=== PATIENT | female | born 2000 | race Caucasian/White ===

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

== ENCOUNTER 2018-03-30 01:10 | Emergency (ER) | payer MEDICAID ==
--- NOTE | 2018-03-30 01:39 | ER Document Report ---
ED Medical Screen (RME) - General Chief Complaint: Urinary Problem Stated Complaint: URINARY PROBLEM Time Seen by Provider: 03/30/18 01:38 Mode of Arrival: Ambulatory Information source: Patient Notes: 17-year-old female presents to ED for complaint of urinary discomfort. She states tonight when she went to the bathroom she had a lot of burning with urination and when she wiped it was pink tinged on the paper. She states she finished she urinates she feels like she needs to go again. Patient is alert and oriented respirations regular and unlabored speaking in full sentences walk with a even steady gait. I have greeted and performed a rapid initial assessment of this patient. A comprehensive ED assessment and evaluation of the patient, analysis of test results and completion of medical decision making process will be conducted by an additional ED providers. TRAVEL OUTSIDE OF THE [place] IN LAST 30 DAYS: No - Related Data Allergies/Adverse Reactions: No Known Allergies Allergy (Verified 06/09/17 08:48) Past Medical History - Past Medical History Cardiac Medical History: Denies: Hx Coronary Artery Disease, Hx Heart Attack, Hx Hypertension Pulmonary Medical History: Denies: Hx Asthma, Hx Bronchitis, Hx COPD, Hx Pneumonia Neurological Medical History: Denies: Hx Cerebrovascular Accident, Hx Seizures Renal/ Medical History: Denies: Hx Peritoneal Dialysis Musculoskeltal Medical History: Denies Hx Arthritis Past Surgical History: Reports: Other - pilon. cyst - Immunizations Hx Diphtheria, Pertussis, Tetanus Vaccination: Yes History of Influenza Vaccine for 05/2017 - 10/2017 Season: No Doctor's Discharge - Discharge Referrals: ERICA BECERRA MD [Primary Care Provider] - Follow up as needed
[2018-03-30 02:59] LABS: APPEARANCE,URINE CLOUDY; BILIRUBIN,URINE NEGATIVE (NEGATIVE); CALCIUM OXALATE CRYSTALS,URINE FEW /HPF; COLOR,URINE YELLOW; GLUCOSE, URINE 50 mg/dL (NEGATIVE); KETONES,URINE NEGATIVE (NEGATIVE); LEUKOCYTE ESTERASE,URINE LARGE (NEGATIVE); NITRITE,URINE NEGATIVE (NEGATIVE); PROTEIN,URINE 30 mg/dL (NEGATIVE); URINE SPECIFIC GRAVITY 1.029; UROBILINOGEN,URINE NEGATIVE mg/dL (<2.0)
== END 2018-03-30 03:30 | disposition left against medical advice (07) ==
LOC: ER 01:10
DX: R30.0 Dysuria (principal); Z53.20 Procedure and treatment not carried out because of patient's decision for unspecified reasons
CPT/HCPCS: 81001; 81025; 99281

== ENCOUNTER 2018-07-10 17:53 | Emergency (ER) | payer MEDICAID ==
[2018-07-10] MEDS ORDERED: LIDOCAINE 2% VISCOUS SOLN 20 ML UDCUP PO ONE (18:10)
[2018-07-10] MEDS ORDERED: DEXAMETHASONE 4 MG TABLET PO ONE (18:10)
[2018-07-10] MEDS ORDERED: IBUPROFEN 800 MG TABLET PO ONE (18:10)
--- NOTE | 2018-07-10 18:23 | ER Document Report ---
HPI - HPI Patient complains to provider of: Sore throat Time Seen by Provider: 07/10/18 18:00 Onset/Duration: Persistent Quality of pain: Achy Pain Level: 5 Context: Patient presents complaining of sore throat for the past 3 days. Patient reports fever at home of 100.2. Patient is concerned she has strep. Associated Symptoms: Fever, Sore throat. denies: Headache Exacerbated by: Denies Relieved by: Denies Similar symptoms previously: Yes Recently seen / treated by doctor: No - ROS ROS below otherwise negative: Yes Systems Reviewed and Negative: Yes All other systems reviewed and negative - CONSTITUTIONAL Constitutional: REPORTS: Fever - EENT EENT: REPORTS: Sore Throat. DENIES: Ear Pain, Congestion - RESPIRATORY Respiratory: DENIES: Coughing - GASTROINTESTINAL Gastrointestinal: DENIES: Nausea, Patient vomiting - REPRODUCTIVE Reproductive: DENIES: : - MUSCULOSKELETAL Musculoskeletal: DENIES: Neck Pain - DERM Skin Color: Normal Skin Problems: None Past Medical History - General Information source: Patient - Social History Smoking Status: Never Smoker Frequency of alcohol use: None Drug Abuse: None Occupation: None Family History: Reviewed & Not Pertinent - Medical History Medical History: Negative - Past Medical History Cardiac Medical History: Denies: Hx Coronary Artery Disease, Hx Heart Attack, Hx Hypertension Pulmonary Medical History: Denies: Hx Asthma, Hx Bronchitis, Hx COPD, Hx Pneumonia Neurological Medical History: Denies: Hx Cerebrovascular Accident, Hx Seizures Renal/ Medical History: Denies: Hx Peritoneal Dialysis Musculoskeletal Medical History: Denies Hx Arthritis Past Surgical History: Reports: Other - pilon. cyst - Immunizations Hx Diphtheria, Pertussis, Tetanus Vaccination: Yes Vertical Provider Document - CONSTITUTIONAL Agree With Documented VS: Yes Exam Limitations: No Limitations General Appearance: WD/WN, No Apparent Distress - INFECTION CONTROL TRAVEL OUTSIDE OF THE [place] IN LAST 30 DAYS: No - HEENT HEENT: Atraumatic, Normocephalic, Pharyngeal Exudate, Pharyngeal Tenderness, Pharyngeal Erythema - NECK Neck: Lymphadenopathy-Left, Lymphadenopathy-Right - RESPIRATORY Respiratory: Breath Sounds Normal, No Respiratory Distress - CARDIOVASCULAR Cardiovascular: Regular Rate, Regular Rhythm, No Murmur - MUSCULOSKELETAL/EXTREMETIES Musculoskeletal/Extremeties: MAEW - NEURO Level of Consciousness: Awake, Alert, Appropriate Motor/Sensory: No Motor Deficit - DERM Integumentary: Warm, Dry, No Rash Course - Re-evaluation Re-evalutation: 07/10/18 \ No potential airway compromise, no concern for peritonsillar abscess. Patient able to manage oral secretions. Throat culture is pending at this time. Good return precautions given. - Laboratory Laboratory results interpreted by me: 07/10/18 18:51 Labs- Entire Visit 07/10/18 18:00 Group A Strep Rapid NEGATIVE Discharge - Discharge Clinical Impression: Sore throat (viral) Condition: Stable Disposition: HOME, SELF-CARE Instructions: Acetaminophen, Sore Throat ([facility]) Additional Instructions: Return immediately for any new or worsening symptoms Followup with your primary care provider, call tomorrow to make a followup appointment Throat culture is pending, we will call if you need any different treatment Prescriptions: Naproxen [Naprosyn 250 Nmg Tablet] 1 tab PO BID #14 tablet Referrals: [facility] [Provider Group] - Follow up as needed [facility] [Provider Group] - Follow up as needed
[2018-07-10 20:05] VITALS: BP 151/83
== END 2018-07-10 19:24 | disposition home or self-care (01) ==
LOC: ER 17:53
DX: J02.8 Acute pharyngitis due to other specified organisms (principal); B97.89 Other viral agents as the cause of diseases classified elsewhere; R50.9 Fever, unspecified; R59.0 Localized enlarged lymph nodes
CPT/HCPCS: 99283; 87070; 87880; J3490 ×3

== ENCOUNTER 2018-10-27 09:22 | Emergency (ER) | payer MEDICAID ==
--- NOTE | 2018-10-27 09:40 | ER Document Report ---
HPI - HPI Time Seen by Provider: 10/27/18 09:35 Pain Level: 2 Notes: Patient is an otherwise healthy 18-year-old female who presents to the emergency department with multiple complaints today. She complains of dysuria and urinary frequency that began last night. She also reports sinus congestion and ear pressure. She does state that she had a tonsillectomy done 3 weeks ago by [facility]. She denies any fevers, nausea, vomiting or diarrhea. - REPRODUCTIVE Reproductive: DENIES: : Past Medical History - General Information source: Patient - Social History Smoking Status: Never Smoker Frequency of alcohol use: None Drug Abuse: None Family History: Reviewed & Not Pertinent - Medical History Medical History: Negative - Past Medical History Cardiac Medical History: Denies: Hx Coronary Artery Disease, Hx Heart Attack, Hx Hypertension Pulmonary Medical History: Denies: Hx Asthma, Hx Bronchitis, Hx COPD, Hx Pneumonia Neurological Medical History: Denies: Hx Cerebrovascular Accident, Hx Seizures Renal/ Medical History: Denies: Hx Peritoneal Dialysis Musculoskeletal Medical History: Denies Hx Arthritis Past Surgical History: Reports: Hx Tonsillectomy, Other - pilon. cyst - Immunizations Hx Diphtheria, Pertussis, Tetanus Vaccination: Yes Vertical Provider Document - CONSTITUTIONAL Notes: PHYSICAL EXAMINATION: GENERAL: Well-appearing, well-nourished and in no acute distress. HEAD: Atraumatic, normocephalic. EYES: Pupils equal round extraocular movements intact, conjunctiva are normal. ENT: Nares patent with clear rhinorrhea. Bilateral TMs full, no erythema. NECK: Normal range of motion, no cervical lymphadenopathy. LUNGS: No respiratory distress, lung sounds clear to auscultation bilaterally Musculoskeletal: Normal range of motion NEUROLOGICAL: Normal speech, normal gait. PSYCH: Normal mood, normal affect. SKIN: Warm, Dry, normal turgor, no rashes or lesions noted. - INFECTION CONTROL TRAVEL OUTSIDE OF THE [place] IN LAST 30 DAYS: No Course - Re-evaluation Re-evalutation: Urinalysis with trace leukocyte esterase, considering patient is symptomatic we will start patient on antibiotics and send urine for culture. Patient encouraged to purchase [id number] Sudafed for her congestion and take the Flonase as prescribed. - Vital Signs Vital signs: Temp Pulse Resp BP Pulse Ox 98.2 F 80 20 140/69 H 98 10/27/18 09:27 10/27/18 09:27 10/27/18 09:27 10/27/18 09:27 10/27/18 09:27 Discharge - Discharge Clinical Impression: Nasal congestion, Dysuria Condition: Stable Disposition: HOME, SELF-CARE Additional Instructions: Your urine appears to be mildly infected. I will put you on a short course of antibiotics pending a urine culture. If there is any abnormality on the urine culture someone will call you in the next 48-72 hours. In the meanwhile my recommendation is to use the Flonase nasal spray as discussed. Patient also purchase [id number] Sudafed to help with your nasal congestion. Prescriptions: Cephalexin [Cephalexin 500 MG Tablet] 1 tab PO QID #20 tablet Fluticasone Propionate [Flonase Nasal Bisbee 50 Mcg/Bisbee 16 gm] 2 sprays NASL Q12 #1 inhaler
[2018-10-27 10:05] LABS: APPEARANCE,URINE SLIGHTLY-CLOUDY; BILIRUBIN,URINE NEGATIVE (NEGATIVE); COLOR,URINE YELLOW; GLUCOSE, URINE NEGATIVE (NEGATIVE); KETONES,URINE NEGATIVE (NEGATIVE); LEUKOCYTE ESTERASE,URINE TRACE (NEGATIVE); NITRITE,URINE NEGATIVE (NEGATIVE); PROTEIN,URINE NEGATIVE (NEGATIVE); URINE SPECIFIC GRAVITY 1.025; UROBILINOGEN,URINE NEGATIVE mg/dL (<2.0)
[2018-10-27 10:37] VITALS: BP 131/68
== END 2018-10-27 10:40 | disposition home or self-care (01) ==
LOC: ER 09:22
DX: R30.0 Dysuria (principal); R35.0 Frequency of micturition; R09.81 Nasal congestion; Z90.89 Acquired absence of other organs
CPT/HCPCS: 81001; 87086; 87088; 87186; 99283

== ENCOUNTER 2018-12-22 00:19 | Emergency (ER) | payer MEDICAID ==
--- NOTE | 2018-12-22 03:34 | ER Document Report ---
ED ENT - General Chief Complaint: Sinus Congestion Stated Complaint: ALLERGY ISSUES Time Seen by Provider: 12/22/18 03:05 TRAVEL OUTSIDE OF THE [place] IN LAST 30 DAYS: No - HPI Notes: Patient is a 18-year-old female presents to the emergency department with a chief complaint of congestion and runny nose. Patient states that the symptoms started about 3 to 4 days ago. Patient has attempted multiple [id number] medications such as a cold and flu, allergy all day, Vicks VapoRub without relief. Patient does deny fever. Patient states that she did take some of her aunts Zyrtec over the weekend which seemed to be the only thing that helped. Patient did have an episode of vomiting yesterday while at work, which she took her own personal Zofran. Patient states that she has been able to tolerate fluids and food since then. Patient does report 2 episodes of diarrhea per day for the past 3 to 4 days. Patient reports that she has had itching and clear drainage from both eyes. Patient also reports feeling of fullness in both ears. Patient denies sore throat, denies shortness of breath - Related Data Allergies/Adverse Reactions: No Known Allergies Allergy (Verified 10/27/18 09:33) Past Medical History - General Information source: Patient - Social History Smoking Status: Current Every Day Smoker Chew tobacco use (# tins/day): No Frequency of alcohol use: None Drug Abuse: None Family History: Reviewed & Not Pertinent Patient has suicidal ideation: No Patient has homicidal ideation: No - Past Medical History Cardiac Medical History: Denies: Hx Coronary Artery Disease, Hx Heart Attack, Hx Hypertension Pulmonary Medical History: Denies: Hx Asthma, Hx Bronchitis, Hx COPD, Hx Pneumonia Neurological Medical History: Denies: Hx Cerebrovascular Accident, Hx Seizures Renal/ Medical History: Denies: Hx Peritoneal Dialysis Musculoskeletal Medical History: Denies Hx Arthritis Past Surgical History: Reports: Hx Tonsillectomy, Other - pilon. cyst - Immunizations Hx Diphtheria, Pertussis, Tetanus Vaccination: Yes Review of Systems - Review of Systems Constitutional: See HPI EENT: See HPI Cardiovascular: No symptoms reported Respiratory: No symptoms reported Gastrointestinal: See HPI Genitourinary: No symptoms reported Female Genitourinary: No symptoms reported Musculoskeletal: No symptoms reported Skin: No symptoms reported Hematologic/Lymphatic: No symptoms reported Neurological/Psychological: No symptoms reported Physical Exam - Vital signs Vitals: Temp Pulse Resp BP Pulse Ox 97.9 F 105 H 16 147/94 H 100 12/22/18 00:22 12/22/18 00:22 12/22/18 00:22 12/22/18 00:22 12/22/18 00:22 Interpretation: Hypertensive, Tachycardic - Notes Notes: GENERAL: Well-appearing, well-nourished and in no acute distress. HEAD: Atraumatic, normocephalic. EYES: Pupils equal round and reactive to light, extraocular movements intact, sclera anicteric, conjunctiva are normal. ENT: Left TM normal, right TM cloudy but no redness, drainage or perforation, nares patent, oropharynx clear without exudates. Moist mucous membranes. Mild sinus tenderness with palpation. NECK: Normal range of motion, supple without lymphadenopathy or JVD. LUNGS: Breath sounds clear to auscultation bilaterally and equal. No wheezes rales or rhonchi. HEART: Regular rate and rhythm without murmurs, rubs or gallops. ABDOMEN: Soft, nontender, normoactive bowel sounds. No guarding, no rebound. No masses appreciated. EXTREMITIES: Normal range of motion, no pitting or edema. No clubbing or cyanosis. NEUROLOGICAL: Cranial nerves II through XII grossly intact. Normal speech, normal gait. PSYCH: Normal mood, normal affect. SKIN: Warm, Dry, normal turgor, no rashes or lesions noted. Course - Re-evaluation Re-evalutation: Patient symptoms consistent with viral conjunctivitis and allergies. Will place patient on Shelbie, a decongestant and nasal spray. Patient reports that she has been inconsistent with allergy medications in the past. Educated patient on the importance of using these medications daily to help with her symptoms. Informed patient to return if symptoms worsen and she develops fever, shortness of breath, severe facial pain, or any other concerning signs or symptoms. - Vital Signs Vital signs: Temp Pulse Resp BP Pulse Ox 98.1 F 98 18 139/89 H 99 12/22/18 03:45 12/22/18 03:45 12/22/18 03:45 12/22/18 03:45 12/22/18 03:45 Discharge - Discharge Clinical Impression: Acute effusion of right ear, Congestion of nasal sinus, Acute viral conjunctivitis of both eyes Condition: Stable Disposition: HOME, SELF-CARE Instructions: Viral Syndrome ([facility]) Additional Instructions: Today your evaluated in the emergency department for congestion, runny nose and symptoms are consistent with allergies. You are being prescribed Flonase nasal spray and Shelbie. With these allergy medications it is important to use these consistently. You can use OTC sudafed which is a nasal decongestant. Continue to push fluids to prevent dehydration. Return to the emergency department for worsening of symptoms to include fever, shortness of breath, chest pain, any other concerning signs or symptoms. Prescriptions: Fexofenadine/Pseudoephedrine [Shelbie-D 24 Hour Tablet] 1 each PO DAILY 30 Days #30 tab.er.24h Fluticasone Propionate [Flonase Nasal [place] 50 Mcg/Orwell 16 gm] 2 sprays NASL Q12 #1 inhaler Forms: Return to Work
[2018-12-22 03:54] VITALS: BP 139/89
== END 2018-12-22 03:54 | disposition home or self-care (01) ==
LOC: ER 00:19
DX: H10.33 Unspecified acute conjunctivitis, bilateral (principal); H92.02 Otalgia, left ear; R09.81 Nasal congestion; R09.89 Other specified symptoms and signs involving the circulatory and respiratory systems; F17.200 Nicotine dependence, unspecified, uncomplicated
CPT/HCPCS: 99283

== ENCOUNTER 2019-02-13 18:19 | Emergency (ER) | payer MEDICAID ==
[2019-02-13] MEDS ORDERED: ONDANSETRON HCL INJ/PF 4 MG/2 ML SDV IV ONE (19:05)
--- NOTE | 2019-02-13 19:15 | ER Document Report ---
ED Medical Screen (RME) - General Chief Complaint: Nausea/Vomiting Stated Complaint: NAUSEA Time Seen by Provider: 02/13/19 19:04 Notes: Patient is a 18-year-old female presents to the emergency department for generalized nausea and vomiting. Patient states her and her friend ate out last evening. States her friend has similar symptoms. Patient states generalized cramping right and left upper quadrants. Patient is denying any fevers or dysuria. GENERAL: Alert, interacts well. No acute distress. ABDOMEN: Soft, generalized epigastric and left upper quadrant pain noted non- distended. Bowel sounds present in all 4 quadrants. I have greeted and performed a rapid initial assessment of this patient. A comprehensive ED assessment and evaluation of the patient, analysis of test results and completion of the medical decision making process will be conducted by additional ED providers. I have specifically instructed the patient or family members with the patient to immediately return to any nursing staff should anything change in the patient's condition or with their chief complaint. This medical record was dictated with voice recognizing software. There may be grammatical, syntax errors that are unintended. TRAVEL OUTSIDE OF THE [place] IN LAST 30 DAYS: No - Related Data Allergies/Adverse Reactions: No Known Allergies Allergy (Verified 02/13/19 18:21) Past Medical History - Social History Frequency of alcohol use: None Drug Abuse: None - Past Medical History Cardiac Medical History: Denies: Hx Coronary Artery Disease, Hx Heart Attack, Hx Hypertension Pulmonary Medical History: Denies: Hx Asthma, Hx Bronchitis, Hx COPD, Hx Pneumonia Neurological Medical History: Denies: Hx Cerebrovascular Accident, Hx Seizures Renal/ Medical History: Denies: Hx Peritoneal Dialysis Musculoskeltal Medical History: Denies Hx Arthritis Past Surgical History: Reports: Hx Tonsillectomy, Other - pilon. cyst - Immunizations Hx Diphtheria, Pertussis, Tetanus Vaccination: Yes History of Influenza Vaccine for 05/2017 - 10/2017 Season: No Physical Exam - Vital signs Vitals: Temp Pulse Resp BP Pulse Ox 98.6 F 69 20 153/104 H 97 02/13/19 18:23 02/13/19 18:23 02/13/19 18:23 02/13/19 18:23 02/13/19 18:23 Course - Vital Signs Vital signs: Temp Pulse Resp BP Pulse Ox 98.6 F 69 20 153/104 H 97 02/13/19 18:23 02/13/19 18:23 02/13/19 18:23 02/13/19 18:23 02/13/19 18:23
[2019-02-13 19:38] LABS: ABSOLUTE BASOPHILS # (AUTO) 0.1 10^3/uL (0.0-0.2); ABSOLUTE EOSINOPHILS # (AUTO) 0.4 10^3/uL (0.0-0.6); ABSOLUTE MONOCYTES (AUTO) 0.7 10^3/uL (0.1-1.4); ABSOLUTE NEUT (AUTO) 5.9 10^3/uL (1.7-8.2); EOSINOPHILS % (AUTO) 3.5 % (0-6); HEMATOCRIT 43.6 % (36.0-47.0); HEMOGLOBIN 14.7 g/dL (12.0-15.5); LYMPHOCYTES % (AUTO) 35.8 % (13-45); MEAN CORPUSCULAR HEMOGLOBIN 27.3 pg (27.0-33.4); MEAN CORPUSCULAR HGB CONC 33.6 g/dL (32.0-36.0); MEAN CORPUSCULAR VOLUME 81 fl (80-97); MONOCYTES % (AUTO) 6.6 % (3-13); PLATELET COUNT 385 10^3/uL (150-450); RED BLOOD COUNT 5.38 10^6/uL (3.72-5.28); RED CELL DISTRIBUTION WIDTH 14.4 % (11.5-14.0); SEGMENTED NEUTROPHILS % (AUTO) 53.1 % (42-78); TOTAL CELLS COUNTED % (AUTO) 100 %
[2019-02-13 19:46] LABS: APPEARANCE,URINE SLIGHTLY-CLOUDY; BILIRUBIN,URINE NEGATIVE (NEGATIVE); COLOR,URINE YELLOW; GLUCOSE, URINE NEGATIVE (NEGATIVE); KETONES,URINE NEGATIVE (NEGATIVE); LEUKOCYTE ESTERASE,URINE TRACE (NEGATIVE); NITRITE,URINE NEGATIVE (NEGATIVE); PROTEIN,URINE NEGATIVE (NEGATIVE); URINE SPECIFIC GRAVITY 1.023; UROBILINOGEN,URINE NEGATIVE mg/dL (<2.0)
[2019-02-13 19:57] LABS: ALANINE AMINOTRANSFERASE 28 U/L (9-52); ALBUMIN 4.5 g/dL (3.5-5.0); ALKALINE PHOSPHATASE 84 U/L (38-126); ANION GAP 10 (5-19); ASPARTATE AMINO TRANSFERASE 35 U/L (14-36); BILIRUBIN,DIRECT 0.3 mg/dL (0.0-0.4); BILIRUBIN,TOTAL 0.4 mg/dL (0.2-1.3); BLOOD UREA NITROGEN 14 mg/dL (7-20); CALCIUM 10.2 mg/dL (8.4-10.2); CARBON DIOXIDE 24 mmol/L (22-30); CHLORIDE 110 mmol/L (98-107); GLUCOSE 87 mg/dL (75-110); LIPASE 110.1 U/L (23-300); POTASSIUM 3.9 mmol/L (3.6-5.0); SODIUM 143.8 mmol/L (137-145); TOTAL PROTEIN 8.1 g/dL (6.3-8.2)
--- NOTE | 2019-02-13 20:48 | ER Document Report ---
ED General - General Chief Complaint: Nausea/Vomiting Stated Complaint: NAUSEA Time Seen by Provider: 02/13/19 19:04 TRAVEL OUTSIDE OF THE [place] IN LAST 30 DAYS: No - HPI Notes: Patient is a 18-year-old female that presents to the emergency department for chief complaint of nausea and vomiting. Patient reports she started having sweats last night and then woke up this morning with nausea and vomiting. She reports multiple episodes of nonbilious nonbloody emesis. She denies any diarrhea today but states she did have some yesterday. She denies any abdominal pain or fevers. Patient states she ate f ood at the [employer] and believes that caused her symptoms. She states that someone who ate with her also is sick. She has not taken any medication at home. Past Medical History: negative Past Surgical History: negative Social History: denies drugs, alcohol, and tobacco Family History: Reviewed and noncontributory for presenting illness Allergies: Reviewed, see documented allergy list. REVIEW OF SYSTEMS: CONSTITUTIONAL : No fever No chills diaphoresis No recent illness EENT: No vision changes No congestion No sore throat CARDIOVASCULAR: No chest pain No palpitations RESPIRATORY: No shortness of breath No cough No difficulty breathing GASTROINTESTINAL: No abdominal pain nausea vomiting No diarrhea GENITOURINARY: No dysuria No hematuria No difficulty urinating MUSCULOSKELETAL: No back pain No leg pain No arm pain SKIN: No rashes No lesions LYMPHATIC: No swollen, enlarged glands. NEUROLOGICAL: No lightheadedness No headache No weakness No paresthesias PSYCHIATRIC: No anxiety No depression PHYSICAL EXAMINATION: Vital signs reviewed, nursing noted reviewed. GENERAL: Well-appearing, obese and in no acute distress. HEAD: Atraumatic, normocephalic. EYES: Eyes appear normal, extraocular movements intact, sclera anicteric, conjunctiva are normal. ENT: nares patent, oropharynx clear without exudates. Moist mucous membranes. NECK: Normal range of motion, supple without lymphadenopathy LUNGS: Breath sounds clear to auscultation bilaterally and equal. No wheezes rales or rhonchi. HEART: Regular rate and rhythm without murmurs ABDOMEN: Soft, nontender, normoactive bowel sounds. No rebound, guarding, or rigidity. No masses appreciated. EXTREMITIES: Nontender, good range of motion, no pitting or edema. NEUROLOGICAL: No focal neurological deficits. Moves all extremities spontaneously Motor and sensory grossly intact on exam. PSYCH: Normal mood, normal affect. SKIN: Warm, Dry, normal turgor, no rashes or lesions noted on exposed skin - Related Data Allergies/Adverse Reactions: No Known Allergies Allergy (Verified 02/13/19 19:25) Past Medical History - Social History Smoking Status: Never Smoker Frequency of alcohol use: None Drug Abuse: None Family History: Reviewed & Not Pertinent Patient has suicidal ideation: No Patient has homicidal ideation: No - Past Medical History Cardiac Medical History: Denies: Hx Coronary Artery Disease, Hx Heart Attack, Hx Hypertension Pulmonary Medical History: Denies: Hx Asthma, Hx Bronchitis, Hx COPD, Hx Pneumonia Neurological Medical History: Denies: Hx Cerebrovascular Accident, Hx Seizures Renal/ Medical History: Denies: Hx Peritoneal Dialysis Musculoskeletal Medical History: Denies Hx Arthritis Past Surgical History: Reports: Hx Tonsillectomy, Other - pilon. cyst - Immunizations Hx Diphtheria, Pertussis, Tetanus Vaccination: Yes Physical Exam - Vital signs Vitals: Temp Pulse Resp BP Pulse Ox 98.6 F 69 20 153/104 H 97 02/13/19 18:23 02/13/19 18:23 02/13/19 18:23 02/13/19 18:23 02/13/19 18:23 Course - Re-evaluation Re-evalutation: 02/13/19 20:48 Vitals reviewed. Nursing notes reviewed. Patient's lab work is grossly unremarkable. She has a mild leukocytosis which is likely reactive from her vomiting. Her abdominal exam is soft with no focal tenderness to suggest acute appendicitis or cholecystitis. After receiving Zofran she states she is feeling much better and is no longer nauseated. She has not vomited in the ED. symptoms likely related to gastroenteritis. She was counseled on staying well-hydrated. She will be given a prescription for Zofran to take at home. She is stable at discharge. Laboratory 02/13/19 02/13/19 02/13/19 19:23 19:23 19:23 WBC 11.0 H RBC 5.38 H Hgb 14.7 Hct 43.6 MCV 81 MCH 27.3 MCHC 33.6 RDW 14.4 H Plt Count 385 Seg Neutrophils % 53.1 Lymphocytes % 35.8 Monocytes % 6.6 Eosinophils % 3.5 Basophils % 1.0 Absolute Neutrophils 5.9 Absolute Lymphocytes 4.0 Absolute Monocytes 0.7 Absolute Eosinophils 0.4 Absolute Basophils 0.1 Sodium 143.8 Potassium 3.9 Chloride 110 H Carbon Dioxide 24 Anion Gap 10 BUN 14 Creatinine 0.82 Est GFR ( Amer) > 60 Est GFR (Non-Af Amer) > 60 Glucose 87 Calcium 10.2 Total Bilirubin 0.4 Direct Bilirubin 0.3 Neonat Total Bilirubin Not Reportable Neonat Direct Bilirubin Not Reportable Neonat Indirect Bili Not Reportable AST 35 ALT 28 Alkaline Phosphatase 84 Total Protein 8.1 Albumin 4.5 Lipase 110.1 Urine Color YELLOW Urine Appearance SLIGHTLY-CLOUDY Urine pH 6.0 Ur Specific [place] 1.023 Urine Protein NEGATIVE Urine Glucose (UA) NEGATIVE Urine Ketones NEGATIVE Urine Blood NEGATIVE Urine Nitrite NEGATIVE Urine Bilirubin NEGATIVE Urine Urobilinogen NEGATIVE Ur Leukocyte Esterase TRACE H Urine WBC (Auto) 3 Urine RBC (Auto) 4 Urine Bacteria (Auto) TRACE Squamous Epi Cells Auto 3 Urine Mucus (Auto) RARE Urine Ascorbic Acid NEGATIVE Urine HCG, Qual NEGATIVE - Vital Signs Vital signs: Temp Pulse Resp BP Pulse Ox 98.6 F 69 20 153/104 H 97 02/13/19 18:23 02/13/19 18:23 02/13/19 18:23 02/13/19 18:23 02/13/19 18:23 - Laboratory Result Diagrams: 02/13/19 19:23 02/13/19 19:23 Laboratory results interpreted by me: 02/13/19 02/13/19 02/13/19 19:23 19:23 19:23 WBC 11.0 H RBC 5.38 H RDW 14.4 H Chloride 110 H Ur Leukocyte Esterase TRACE H Discharge - Discharge Clinical Impression: Elevated blood pressure reading Nausea and vomiting Qualifiers: Vomiting type: unspecified Vomiting Intractability: non-intractable Qualified Code(s): R11.2 - Nausea with vomiting, unspecified Condition: Stable Disposition: HOME, SELF-CARE Instructions: Vomiting ([facility]) Additional Instructions: Please return to the emergency department if you have any worsening, or concern of your symptoms. Please return to the emergency department if you develop chest pain, difficulty breathing, severe abdominal pain, or ongoing vomiting. Please follow-up with your primary care physician in 2-3 days and any other recommended physicians. If prescribed, take all medications as directed. If you have any questions or concerns do not hesitate to return the emergency department for evaluation. Your blood pressure was elevated today and needs to be rechecked at a primary care doctor's office. You may need to be started on blood pressure medications. Prescriptions: Ondansetron [Zofran Odt 4 mg Tablet] 1 tab PO Q4H PRN #15 tab.rapdis PRN Reason: For Nausea/Vomiting Forms: Elevated Blood Pressure, Return to Work Referrals: [facility] [Provider Group] - Follow up as needed
[2019-02-13 21:21] VITALS: BP 168/74
== END 2019-02-13 21:19 | disposition home or self-care (01) ==
LOC: ER 18:19
DX: R11.2 Nausea with vomiting, unspecified (principal); R19.7 Diarrhea, unspecified; R03.0 Elevated blood-pressure reading, without diagnosis of hypertension
CPT/HCPCS: 99283; 96374; 36415; 83690; 85025; 81025; 80053; 81001; J2405

== ENCOUNTER 2019-04-05 21:45 | Emergency (ER) | payer MEDICAID ==
--- NOTE | 2019-04-05 22:52 | ER Document Report ---
ED Substance Abuse / Acc. OD - General Chief Complaint: Possible Overdose Stated Complaint: POSSIBLE OVERDOSE Time Seen by Provider: 04/05/19 22:51 Mode of Arrival: Stretcher Information source: Patient Notes: HISTORY OF PRESENT ILLNESS: Patient is a 18-year-old female with a past medical history of multiple chronic conditions including anxiety who presents with intentional overdose of appr oximately 10-20 Topamax 100 mg tablets prior to arrival. Patient reports that she "got in an argument" with her significant other and took these pills in an attempt to "make her come back." Patient currently denies suicidal/homicidal ideations, no delusions/hallucinations, denies drug abuse or alcohol intoxication. She denies coingestions of alcohol, Tylenol, or salicylates. Onset: Prior to arrival Provocation: "Anxiety" Quality: "I feel jittery" Radiation: None Severity: Mild to moderate Timing: Constant SI/HI: None Hallucinations: None Current therapist: None Current treatment: Topamax REVIEW OF SYSTEMS: CONSTITUTIONAL : Denies fever or chills, no sweats. Denies recent illness. EENT: Denies eye, ear, throat, or mouth pain or symptoms. Denies nasal or sinus congestion. CARDIOVASCULAR: Denies chest pain. RESPIRATORY: Denies cough, cold, or chest congestion. Denies shortness of breath, difficulty breathing, or wheezing. GASTROINTESTINAL: Denies abdominal pain. Denies nausea, vomiting, or diarrhea. Denies constipation. GENITOURINARY: Denies difficulty urinating, painful urination, burning, frequency, or blood in urine. FEMALE GENITOURINARY: Denies vaginal bleeding, abnormal or irregular periods. Last menstrual period MUSCULOSKELETAL: Denies neck or back pain or joint pain or swelling. SKIN: Denies rash or skin lesions. HEMATOLOGIC : Denies easy bruising or bleeding. LYMPHATIC: Denies swollen, enlarged glands. NEUROLOGICAL: Denies altered mental status or loss of consciousness. Denies headache. Denies weakness or paralysis or loss of use of either side. Denies problems with gait or speech. Denies sensory or motor loss. PSYCHIATRIC: Denies suicidal/homicidal thoughts. Positive for anxiety, denies current depression. All other systems reviewed and negative. PHYSICAL EXAMINATION: GENERAL: Anxious but well-appearing, well-nourished and in no acute distress. HEAD: Atraumatic, normocephalic. No scalp deformity, depression, or crepitance. EYES: Pupils are 7mm and equal/round/reactive to light, extraocular movements intact, sclera anicteric, conjunctiva are normal. ENT: Nares patent bilaterally, oropharynx clear without exudates or palatal petechia. Moist mucous membranes. No tonsil hypertrophy. NECK: Normal range of motion, supple without lymphadenopathy. LUNGS: Breath sounds present, equal, and clear to auscultation bilaterally. No wheezes, rales, or rhonchi. HEART: Increased rate with normal rhythm without murmurs, rubs, or gallops. 2+ peripheral pulses. Normal capillary refill. ABDOMEN: Soft, nontender, nondistended. Normoactive bowel sounds. No guarding, no rebound. No masses appreciated. BACK: Normal contour, no midline tenderness. Rectal exam deferred. GENITAL/PELVC: Deferred. EXTREMITIES: Normal range of motion, no pitting or edema. No cyanosis. NEUROLOGICAL: No focal neurological deficits. Moves all extremities spontaneously and on command. PSYCH: Normal mood, normal affect. No suicidal thoughts/ideations. No homicidal thoughts/ideations. No hallucinations. SKIN: Warm, dry, normal turgor, no rashes or lesions noted. ASSESSMENT AND PLAN: This patient is a 18-year-old female who presents with anxiety and tachycardia after intentional overdose of Topamax. Per poison control center, patient is to be observed for 8 hours postingestion, will need coingestion levels of both salicylates and Tylenol, will need cardiac monitoring with EKG and symptomatic control as needed. 1. Will obtain labs and medically clear. 2. Will IVC for inpatient treatment. TRAVEL OUTSIDE OF THE [place] IN LAST 30 DAYS: No - HPI Patient complains to provider of: Other - Intentional drug overdose Onset: Other - Approximately 2200 Onset/Duration: Sudden Quality of pain: No pain Severity: None Pain Level: Denies Situational problems related to: Spouse Overdose of: Other - Topira Strength: "100 mg" Amount: "I took about 10-20" Time of ingestion: 22:00 Associated Symptoms: Nausea/vomiting, Tremors, Lightheaded, Rapid pulse Similar symptoms previously: No Recently seen / treated by doctor: No - Related Data Allergies/Adverse Reactions: No Known Allergies Allergy (Verified 02/13/19 19:25) Past Medical History - Social History Smoking Status: Never Smoker Chew tobacco use (# tins/day): No Frequency of alcohol use: None Drug Abuse: None Lives with: Family Family History: Reviewed & Not Pertinent Patient has suicidal ideation: No - Pt denies Patient has homicidal ideation: No - Past Medical History Cardiac Medical History: Reports: None Denies: Hx Coronary Artery Disease, Hx Heart Attack, Hx Hypertension Pulmonary Medical History: Reports: None Denies: Hx Asthma, Hx Bronchitis, Hx COPD, Hx Pneumonia EENT Medical History: Reports: None Neurological Medical History: Reports: None. Denies: Hx Cerebrovascular Accident, Hx Seizures Endocrine Medical History: Reports: None Renal/ Medical History: Reports: None. Denies: Hx Peritoneal Dialysis Malignancy Medical History: Reports: None GI Medical History: Reports: None Musculoskeletal Medical History: Reports None, Denies Hx Arthritis Skin Medical History: Reports None Psychiatric Medical History: Reports: None Traumatic Medical History: Reports: None Infectious Medical History: Reports: None Surgical Hx: Negative Past Surgical History: Reports: Hx Tonsillectomy, Other - pilon. cyst - Immunizations Hx Diphtheria, Pertussis, Tetanus Vaccination: Yes Review of Systems - Review of Systems Constitutional: No symptoms reported EENT: No symptoms reported Cardiovascular: No symptoms reported Respiratory: No symptoms reported Gastrointestinal: No symptoms reported Genitourinary: No symptoms reported Female Genitourinary: No symptoms reported Musculoskeletal: No symptoms reported Skin: No symptoms reported Hematologic/Lymphatic: No symptoms reported Neurological/Psychological: See HPI, Anxiety, Suicidal ideation -: Yes All other systems reviewed and negative Physical Exam - Vital signs Vitals: Temp Pulse Resp BP Pulse Ox 98.3 F 74 17 134/64 H 100 04/05/19 22:13 04/05/19 22:13 04/05/19 22:13 04/05/19 22:13 04/05/19 22:13 Interpretation: Normal - General General appearance: Appears well, Alert - HEENT Head: Normocephalic, Atraumatic Eyes: Normal Pupils: PERRL - Respiratory Respiratory status: No respiratory distress Chest status: Nontender Breath sounds: Normal Chest palpation: Normal - Cardiovascular Rhythm: Regular Heart sounds: Normal auscultation Murmur: No - Abdominal Inspection: Normal Distension: No distension Bowel sounds: Normal Tenderness: Nontender Organomegaly: No organomegaly - Back Back: Normal, Nontender - Extremities General upper extremity: Normal inspection, Nontender, Normal color, Normal ROM, Normal temperature General lower extremity: Normal inspection, Nontender, Normal color, Normal ROM, Normal temperature, Normal weight bearing. No: Grisel's sign - Neurological Neuro grossly intact: Yes Cognition: Normal Orientation: AAOx4 [place] Coma Scale Eye Opening: Spontaneous [place] Coma Scale Verbal: Oriented [place] Coma Scale Motor: Obeys Commands [place] Coma Scale Total: 15 Speech: Normal Motor strength normal: LUE, RUE, LLE, RLE Sensory: Normal - Psychological Associated symptoms: Normal affect, Normal mood - Skin Skin Temperature: Warm Skin Moisture: Dry Skin Color: Normal Course - Re-evaluation Re-evalutation: 04/06/19 06:04 The patient is medically cleared and has been observed all night. Will IVC for inpatient treatment. - Vital Signs Vital signs: Temp Pulse Resp BP Pulse Ox 97.8 F 74 19 160/82 H 97 04/06/19 05:01 04/05/19 22:13 04/06/19 05:01 04/06/19 05:01 04/06/19 05:01 - Laboratory Result Diagrams: 04/05/19 21:40 04/05/19 21:40 Laboratory results interpreted by me: 04/05/19 04/05/19 04/05/19 21:40 21:40 23:30 WBC 13.2 H Absolute Lymphs (auto) 5.4 H Calcium 10.6 H Ur Leukocyte Esterase SMALL H Salicylates < 1.0 L Acetaminophen < 10 L - EKG Interpretation by [place] EKG shows normal: Sinus rhythm Rate: Normal Rhythm: NSR [place]/QRS: No: Right axis deviation, Left axis deviation, RBBB, LBBB, IVCD, LAHB/ LAFB, LPHB/LPFB, Bifasicular block Voltage: No: Increased voltage, Consistant with LVH, Decreased voltage, Throughout, Limb leads P Waves: No: DON, LAE, Absent, AV Dissociation, Other Heart block present: No: 1st Degree, Mobitz 1, Mobitz 2, CHB (3rd degree block) When compared to previous EKG there are: No significant change Discharge - Discharge Clinical Impression: Intentional overdose of drug in tablet form Condition: Good Disposition: PSYCH HOSP/UNIT
--- NOTE | 2019-04-05 23:32 | EKG REPORT ---
SEVERITY:- BORDERLINE ECG - SINUS RHYTHM INFERIOR Q WAVES, PROBABLY NORMAL VARIATION BORDERLINE T ABNORMALITIES, ANTERIOR LEADS : Confirmed by: Lui Webb 05-Apr-2019 23:32:15
[2019-04-06] MEDS ORDERED: LORAZEPAM INJ 2 MG/1 ML VIAL IV ONE (01:30)
[2019-04-06 01:42] LABS: ABSOLUTE BASOPHILS # (AUTO) 0.1 10^3/uL (0.0-0.2); ABSOLUTE EOSINOPHILS # (AUTO) 0.3 10^3/uL (0.0-0.6); ABSOLUTE LYMPHOCYTES (AUTO) 5.4 10^3/uL (0.5-4.7); ABSOLUTE MONOCYTES (AUTO) 0.9 10^3/uL (0.1-1.4); ABSOLUTE NEUT (AUTO) 6.6 10^3/uL (1.7-8.2); BASOPHILS % (AUTO) 0.4 % (0-2); EOSINOPHILS % (AUTO) 2.4 % (0-6); HEMATOCRIT 42.3 % (36.0-47.0); LYMPHOCYTES % (AUTO) 40.9 % (13-45); MEAN CORPUSCULAR HEMOGLOBIN 27.5 pg (27.0-33.4); MEAN CORPUSCULAR VOLUME 84 fl (80-97); MONOCYTES % (AUTO) 6.7 % (3-13); PLATELET COUNT 397 10^3/uL (150-450); RED BLOOD COUNT 5.07 10^6/uL (3.72-5.28); SEGMENTED NEUTROPHILS % (AUTO) 49.6 % (42-78); TOTAL CELLS COUNTED % (AUTO) 100 %; WHITE BLOOD COUNT 13.2 10^3/uL (4.0-10.5)
[2019-04-06 01:56] LABS: ALBUMIN 4.4 g/dL (3.5-5.0); ALKALINE PHOSPHATASE 91 U/L (38-126); ANION GAP 12 (5-19); ASPARTATE AMINO TRANSFERASE 35 U/L (14-36); BILIRUBIN,DIRECT 0.3 mg/dL (0.0-0.4); BILIRUBIN,TOTAL 0.4 mg/dL (0.2-1.3); BLOOD UREA NITROGEN 11 mg/dL (7-20); CALCIUM 10.6 mg/dL (8.4-10.2); CARBON DIOXIDE 24 mmol/L (22-30); CHLORIDE 106 mmol/L (98-107); GLUCOSE 101 mg/dL (75-110); POTASSIUM 4.2 mmol/L (3.6-5.0); TOTAL PROTEIN 7.4 g/dL (6.3-8.2)
[2019-04-06 01:57] LABS: ACETAMINOPHEN < 10 ug/mL (10-30); ALCOHOL < 10 mg/dL (NONE DETECTED); SALICYLATE < 1.0 mg/dL (2.0-20.0)
[2019-04-06 02:41] LABS: APPEARANCE,URINE SLIGHTLY-CLOUDY; BILIRUBIN,URINE NEGATIVE (NEGATIVE); COLOR,URINE YELLOW; GLUCOSE, URINE NEGATIVE (NEGATIVE); KETONES,URINE NEGATIVE (NEGATIVE); LEUKOCYTE ESTERASE,URINE SMALL (NEGATIVE); NITRITE,URINE NEGATIVE (NEGATIVE); PROTEIN,URINE NEGATIVE (NEGATIVE); URINE SPECIFIC GRAVITY 1.011; UROBILINOGEN,URINE NEGATIVE mg/dL (<2.0)
[2019-04-06 02:55] LABS: URINE AMPHETAMINES SCREEN NEGATIVE; URINE BARBITURATES SCREEN NEGATIVE; URINE BENZODIAZEPINES SCREEN NEGATIVE; URINE COCAINE SCREEN NEGATIVE; URINE MARIJUANA (THC) SCREEN NEGATIVE; URINE METHADONE SCREEN NEGATIVE; URINE PHENCYCLIDINE SCREEN NEGATIVE
--- NOTE | 2019-04-06 12:14 | ER Document Report ---
Doctor's Note Notes: 04/06/19 12:13 Patient is feeling much better, regrets her overdose attempt, states she was never trying to hurt herself or kill herself just wanted her girlfriend not to leave her. Currently patient is going to go stay with her parents at their home. Patient has no suicidal homicidal ideation. Patient's girlfriend and/or parents will take control of her medications for the next 2 weeks. Patient will follow-up as an outpatient with behavioral health resources that have been given from here. Discharged home. IVC has been rescinded. 04/06/19 12:14 GENERAL: Alert, interacts well. No acute distress. HEAD: Normocephalic, atraumatic EYES: Pupils equal, round and reactive to light, extraocular movements intact. ENT: Oral mucosa moist, tongue midline. NECK: Full range of motion, supple, trachea midline. LUNGS: no respiratory distress. EXTREMITIES: Moves all 4 extremities spontaneously, no edema. No cyanosis. NEUROLOGICAL: Alert and oriented x3, normal speech. PSYCH: Normal mood, normal affect. SKIN: Warm, Dry, normal turgor, no rashes or lesions noted.
[2019-04-06 12:30] VITALS: BP 134/94
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
== END 2019-04-06 12:31 | disposition home or self-care (01) ==
LOC: ER 21:45
DX: T42.6X2A Poisoning by other antiepileptic and sedative-hypnotic drugs, intentional self-harm, initial encounter (principal); R11.2 Nausea with vomiting, unspecified; F41.9 Anxiety disorder, unspecified; X83.8XXA Intentional self-harm by other specified means, initial encounter
CPT/HCPCS: 93005; 99285; 96374; 36415; 80307 ×4; 85025; 81025; 80053; 81001; 93010; J2060

== ENCOUNTER 2019-06-22 19:12 | Emergency (ER) | payer MEDICAID ==
--- NOTE | 2019-06-22 20:09 | ER Document Report ---
ED Medical Screen (RME) - General Chief Complaint: Numbness Stated Complaint: HAND SWELLING/NUMBNESS,DIZZINESS Time Seen by Provider: 06/22/19 20:04 Notes: Patient is a 18-year-old female who presents the emergency department with a chief complaint of bilateral arm swelling and dizziness. Patient was at work today and around 1645 she felt both of her arms go numb. She also had some dizziness. She ended up drinking some water and the dizziness went away, but she states that she still feels tingling in bilateral arms and hands. Patient has a history of anemia. Mother is concerned for possible diabetes. Exam: 5 out of 5 strength in bilateral upper extremities. Mild edema noted to bilateral upper arms. I have greeted and performed a rapid initial assessment of this patient. A comprehensive ED assessment and evaluation of the patient, analysis of test results and completion of medical decision making process will be conducted by an additional ED providers. TRAVEL OUTSIDE OF THE [place] IN LAST 30 DAYS: No - Related Data Allergies/Adverse Reactions: No Known Allergies Allergy (Verified 02/13/19 19:25) Home Medications: topamax. celexa Past Medical History - Social History Chew tobacco use (# tins/day): No Frequency of alcohol use: None Drug Abuse: None - Past Medical History Cardiac Medical History: Denies: Hx Coronary Artery Disease, Hx Heart Attack, Hx Hypertension Pulmonary Medical History: Denies: Hx Asthma, Hx Bronchitis, Hx COPD, Hx Pneumonia Neurological Medical History: Denies: Hx Cerebrovascular Accident, Hx Seizures Renal/ Medical History: Denies: Hx Peritoneal Dialysis Musculoskeltal Medical History: Denies Hx Arthritis Past Surgical History: Reports: Hx Tonsillectomy, Other - pilon. cyst - Immunizations Hx Diphtheria, Pertussis, Tetanus Vaccination: Yes
[2019-06-22 20:58] LABS: ABSOLUTE BASOPHILS # (AUTO) 0.1 10^3/uL (0.0-0.2); ABSOLUTE EOSINOPHILS # (AUTO) 0.3 10^3/uL (0.0-0.6); ABSOLUTE LYMPHOCYTES (AUTO) 3.6 10^3/uL (0.5-4.7); ABSOLUTE MONOCYTES (AUTO) 0.6 10^3/uL (0.1-1.4); EOSINOPHILS % (AUTO) 2.8 % (0-6); HEMATOCRIT 43.9 % (36.0-47.0); HEMOGLOBIN 14.8 g/dL (12.0-15.5); LYMPHOCYTES % (AUTO) 33.5 % (13-45); MEAN CORPUSCULAR HEMOGLOBIN 28.2 pg (27.0-33.4); MEAN CORPUSCULAR HGB CONC 33.8 g/dL (32.0-36.0); MEAN CORPUSCULAR VOLUME 84 fl (80-97); MONOCYTES % (AUTO) 6.1 % (3-13); PLATELET COUNT 329 10^3/uL (150-450); RED BLOOD COUNT 5.25 10^6/uL (3.72-5.28); RED CELL DISTRIBUTION WIDTH 13.6 % (11.5-14.0); SEGMENTED NEUTROPHILS % (AUTO) 56.6 % (42-78); TOTAL CELLS COUNTED % (AUTO) 100 %; WHITE BLOOD COUNT 10.6 10^3/uL (4.0-10.5)
[2019-06-22 21:16] LABS: APPEARANCE,URINE SLIGHTLY-CLOUDY; BILIRUBIN,URINE NEGATIVE (NEGATIVE); COLOR,URINE YELLOW; GLUCOSE, URINE 50 mg/dL (NEGATIVE); KETONES,URINE NEGATIVE (NEGATIVE); LEUKOCYTE ESTERASE,URINE TRACE (NEGATIVE); NITRITE,URINE NEGATIVE (NEGATIVE); PROTEIN,URINE 30 mg/dL (NEGATIVE); URINE SPECIFIC GRAVITY 1.028
[2019-06-22 21:17] LABS: ALBUMIN 4.5 g/dL (3.5-5.0); ALKALINE PHOSPHATASE 78 U/L (38-126); ANION GAP 11 (5-19); ASPARTATE AMINO TRANSFERASE 33 U/L (14-36); BILIRUBIN,DIRECT 0.2 mg/dL (0.0-0.4); BILIRUBIN,TOTAL 0.4 mg/dL (0.2-1.3); BLOOD UREA NITROGEN 10 mg/dL (7-20); CALCIUM 10.1 mg/dL (8.4-10.2); CARBON DIOXIDE 25 mmol/L (22-30); CHLORIDE 109 mmol/L (98-107); GLUCOSE 94 mg/dL (75-110); POTASSIUM 4.7 mmol/L (3.6-5.0); TOTAL PROTEIN 7.6 g/dL (6.3-8.2)
--- NOTE | 2019-06-22 21:39 | ER Document Report ---
HPI - HPI Patient complains to provider of: Hand swelling, dizziness Time Seen by Provider: 06/22/19 20:04 Onset: This afternoon Onset/Duration: Gone Pain Level: Denies Context: Patient states she was at work and developed wrist and hand swelling and numbness. Patient states she was also feeling dizzy at that time. Patient states she drank 2 large glasses of water and her dizziness resolved. Patient also reports that gradually her swelling in her hands resolved as well. Patient states she came in this evening because she was concerned that she may be diabetic because she is overweight. Patient denies any headache, chest pain, shortness of breath, nausea or vomiting. No concern about . Patient denies any recent illness. Patient denies wearing any restrictive clothing or any long periods of standing that may have precipitated her swelling to the upper extremities. Associated Symptoms: Other - Hand swelling, dizziness both now resolved. den ies: Nonproductive cough, Fever, Headache, Vomiting Exacerbated by: Denies Relieved by: Denies Similar symptoms previously: No Recently seen / treated by doctor: No - ROS ROS below otherwise negative: Yes Systems Reviewed and Negative: Yes All other systems reviewed and negative - CONSTITUTIONAL Constitutional: DENIES: Fever - NEURO Neurology: REPORTS: Dizzinesss / Vertigo - CARDIOVASCULAR Cardiovascular: DENIES: Chest pain - RESPIRATORY Respiratory: DENIES: Trouble Breathing, Coughing - GASTROINTESTINAL Gastrointestinal: DENIES: Abdominal Pain, Nausea, Patient vomiting - REPRODUCTIVE LMP: bc bar Reproductive: DENIES: : - MUSCULOSKELETAL Musculoskeletal: REPORTS: Swelling - Bilateral hands now resolved - DERM Skin Color: Normal Skin Problems: None Past Medical History - General Information source: Patient - Social History Smoking Status: Current Some Day Smoker Chew tobacco use (# tins/day): No Frequency of alcohol use: None Drug Abuse: None Occupation: [employer] Lives with: Spouse/Significant other Family History: Reviewed & Not Pertinent Patient has suicidal ideation: No Patient has homicidal ideation: No - Medical History Medical History: Other - Anemia Renal/ Medical History: Denies: Hx Peritoneal Dialysis Musculoskeletal Medical History: Denies Hx Arthritis Psychiatric Medical History: Reports: Hx Anxiety, Hx Depression Past Surgical History: Reports: Hx Tonsillectomy, Other - pilon. cyst - Immunizations Hx Diphtheria, Pertussis, Tetanus Vaccination: Yes Vertical Provider Document - CONSTITUTIONAL Agree With Documented VS: Yes Exam Limitations: No Limitations General Appearance: WD/WN, No Apparent Distress Notes: PHYSICAL EXAMINATION: GENERAL: Well-appearing and in no acute distress. HEAD: Atraumatic, normocephalic. EYES: sclera anicteric, conjunctiva are normal. ENT: nares patent. Moist mucous membranes. NECK: Normal range of motion, supple without lymphadenopathy LUNGS: CTAB and equal. No wheezes rales or rhonchi. HEART: Regular rate and rhythm without murmurs. Normal capillary refill ABDOMEN: Soft, nontender, normal bowel sounds, no guarding. EXTREMITIES: Normal range of motion, no pitting edema. No cyanosis. No Phalen's or Tinel sign bilaterally. BACK: No midline tenderness, no step-off or deformity. No CVA tenderness NEUROLOGICAL: Cranial nerves grossly intact. Normal speech. Normal gait. PSYCH: Normal mood, normal affect. SKIN: Warm, Dry, normal turgor, no rashes or lesions noted - INFECTION CONTROL TRAVEL OUTSIDE OF THE [place] IN LAST 30 DAYS: No Course - Re-evaluation Re-evalutation: 06/22/19 21:35 Patient without any objective swelling at this time. Patient denies any lightheadedness dizziness chest pain or shortness of breath, no concern for PE. No change in EKG from prior. Patient does have findings worrisome for dehydration. Patient encouraged to increase oral fluids. Patient denies any urinary symptoms at this time, no concern for UTI. Patient is homosexual and has a Nexplanon to help with her heavy menses, no concern for . Patient without any acute electrolyte abnormality or anemia. Recommend outpatient follow-up with primary care provider for recheck. Patient is agreeable with discharge plan of care at this time 06/22/19 21:39 - Vital Signs Vital signs: Temp Pulse Resp BP Pulse Ox 97.8 F 104 H 18 149/87 H 98 06/22/19 19:15 06/22/19 19:15 06/22/19 19:15 06/22/19 19:15 06/22/19 19:15 - Laboratory Result Diagrams: 06/22/19 20:40 06/22/19 20:40 Laboratory results interpreted by me: 06/22/19 06/22/19 06/22/19 20:40 20:40 20:55 WBC 10.6 H Sodium 145.2 H Chloride 109 H Urine Protein 30 H Urine Glucose (UA) 50 H Urine Urobilinogen 2.0 H Ur Leukocyte Esterase TRACE H 06/22/19 21:36 Labs- Entire Visit 06/22/19 06/22/19 06/22/19 20:40 20:40 20:55 WBC 10.6 H RBC 5.25 Hgb 14.8 Hct 43.9 MCV 84 MCH 28.2 MCHC 33.8 RDW 13.6 Plt Count 329 Lymph % (Auto) 33.5 [place] % (Auto) 6.1 Eos % (Auto) 2.8 Baso % (Auto) 1.0 Absolute Neuts (auto) 6.0 Absolute Lymphs (auto) 3.6 Absolute Monos (auto) 0.6 Absolute Eos (auto) 0.3 Absolute Basos (auto) 0.1 Seg Neutrophils % 56.6 Sodium 145.2 H Potassium 4.7 Chloride 109 H Carbon Dioxide 25 Anion Gap 11 BUN 10 Creatinine 0.80 Est GFR ( Amer) > 60 Est GFR (MDRD) Non-Af > 60 Glucose 94 Calcium 10.1 Total Bilirubin 0.4 Direct Bilirubin 0.2 Neonat Total Bilirubin Not Reportable Neonat Direct Bilirubin Not Reportable Neonat Indirect Bili Not Reportable AST 33 ALT 38 Alkaline Phosphatase 78 Total Protein 7.6 Albumin 4.5 Urine Color YELLOW Urine Appearance SLIGHTLY-CLOUDY Urine pH 6.0 Ur Specific [place] 1.028 Urine Protein 30 H Urine Glucose (UA) 50 H Urine Ketones NEGATIVE Urine Blood NEGATIVE Urine Nitrite NEGATIVE Urine Bilirubin NEGATIVE Urine Urobilinogen 2.0 H Ur Leukocyte Esterase TRACE H Urine WBC (Auto) 4 Urine RBC (Auto) 4 Urine Bacteria (Auto) 1+ Squamous Epi Cells Auto 3 Urine Mucus (Auto) OCC Urine Ascorbic Acid NEGATIVE Discharge - Discharge Clinical Impression: Dizziness, Dehydration, Resolved hand swelling Condition: Stable Disposition: HOME, SELF-CARE Additional Instructions: Return immediately for any new or worsening symptoms Followup with your primary care provider, call tomorrow to make a followup appointment Increase oral fluids and stay well-hydrated. Forms: Return to Work Referrals: [facility] [Provider Group] - Follow up as needed [facility] [Provider Group] - Follow up as needed
[2019-06-22 21:56] VITALS: BP 140/85
--- NOTE | 2019-06-23 07:22 | EKG REPORT ---
SEVERITY:- BORDERLINE ECG - SINUS RHYTHM INFERIOR Q WAVES, PROBABLY NORMAL VARIATION : Confirmed by: Ovi Ross MD 23-Jun-2019 07:22:07
== END 2019-06-22 21:57 | disposition home or self-care (01) ==
LOC: ER 19:12
DX: R42 Dizziness and giddiness (principal); E86.0 Dehydration; M79.89 Other specified soft tissue disorders; F17.200 Nicotine dependence, unspecified, uncomplicated
CPT/HCPCS: 36415; 80053; 81001; 85025; 93005; 93010; 99283